=== PATIENT | male | born 1980 | race Caucasian/White ===

== ENCOUNTER 2016-06-10 12:23 | Emergency (ER) | payer SELFPAY | END 2016-06-10 12:42 | disposition left against medical advice (07) | LOC: ER 12:37 | DX: R41.82 Altered mental status, unspecified (principal); Z53.21 Procedure and treatment not carried out due to patient leaving prior to being seen by health care provider ==

== ENCOUNTER 2016-08-21 15:05 | Emergency (ER) | payer SELFPAY ==
[~2016-08-21] VITALS: Ht 175.3 cm; Wt 90.0 kg
[2016-08-21 15:21] VITALS: BP 94/52
== END 2016-08-21 16:05 | disposition left against medical advice (07) ==
LOC: ER 15:18
DX: R55 Syncope and collapse (principal); F17.200 Nicotine dependence, unspecified, uncomplicated; F12.10 Cannabis abuse, uncomplicated
CPT/HCPCS: 99283